=== PATIENT | male | born 1955 | race Caucasian/White ===

== ENCOUNTER 2021-01-28 09:30 | Outpatient (AMB) | payer MEDICARE, SELFPAY ==
--- NOTE | 2021-01-28 10:00 | PR.OPPALCARP ---
Vital Signs 01/28/21 10:10 Height 1.83 m Height Method Stated Weight 109.769 kg Weight Measurement Method Stated by Patient BMI 32.8 Oxygen Delivery Method Room Air Comment Pain 4-5/10 low back/chest;sharp/pressure; headache Dr. Portillo aware OP Palliative Care [facility] Palliative Care Assessment Appointment Inital Appointment: Follow up Appointment by phone IDT Team Members: Nursing, Wood Preparation Supervisor (Dodie Judge), Phramacist (Jenny Calvin), Dietitian (Tahmina Hernandez), Family (Yoselyn) and Other (Dr. Portillo) Language Spoken: Romanian Personal/Provider information List Name, Facility and location of PCP: LELA Oleary, [facility] in [place]; Date of last visit to PCP: 02/03/21 [facility] Last Labs: 01/08/21 Diagnosis: Metastatic lung cancer Current Treatment [facility] Current Treatment: IV Chemo (on hold for now) and Radiation (half way done with radiation on Tuesday) Current treatment schedule: Goes daily for radiation Pain Is patient in pain?: Yes Neurological Neurological WNL: No Stength: Moderate weakness Sensation: Pain HEENT HEENT WNL: Yes Respiratory Respiratory WNL: No Shortness of Breath: Quite a bit (recovers in 5 minutes) Dyspnea Type: Dyspnea of exertion and Dyspnea at rest Cough: None Sputum: None Gastrointestional Gastrointestinal: No Date of Last Bowel Movement: 01/28/21 Bowel Pattern: Toilet Appetite: 25% of Normal (only able to eat a few bites; able to drink more liquids) Nausea: Moderate (severe; dry heaving with smell or look at food) Vomiting: None Genitourinary Genitourinary WNL: Yes Integumentary Integumentary WNL: No (has healing/scarred area size of silver dollar on back that is discolored; ) Skin Problems: None (Dr. Portillo had looked at patient's back at the healed/scarred spot) Musculoskelatal Musculosketal WNL: No Symptoms: Back Pain and Muscle Weakness Psych/Social Psych/Social WNL: Yes Anxiety Level: None Depression Level: None Sleep: Very much Energy: Not at all Judgement: Good Prognosis Prognosis: Fair Goal of Care: Life Prolonging Advance Care Plan: Advanced Directive (Discussed; patient has documents) and POLST (Discussed; patient has documents) Medical Decision Maker: Yanira, patient's Palliative Performance Scale Palliative Performance Scale: Symptomatic/Up and about/bedridden <50% of time Issues: nausea; dry heave; pain; weight loss; poor appetite; poor energy Plan: Medications to help with nausea; high calorie/high protein diet; pain manag List Name, Facility and location of PCP: LELA Oleary [facility] in [place]; Prognosis: Fair List Name, Facility and location of PCP: LELA Oleary, [facility]; Prognosis: Fair List Name, Facility and location of PCP: LELA Oleary, [facility]; Diagnosis Diagnosis: Metastatic lung cancer *CWC Office Visit complete CWC Offive Visit Complete CWC Visit Complete?: Yes
[2021-01-28 10:10] VITALS: BMI 32.8
--- NOTE | 2021-01-28 10:13 | CWCCLIPHA ---
Review of Systems Const Constitutional: Reports daytime sleepiness, Reports fatigue, Reports headache(s), Reports lethargy, Reports poor appetite, Reports weakness and Reports weight loss ENT Ears. Nose, Mouth, and Throat: Reports ear discharge (right), Reports headache(s), Reports hearing loss (right) and Reports other (ruptured tympanic membrane AD) Card Cardiovascular: Reports chest pain, Reports chest pain at rest and Reports dyspnea Resp Respiratory: Reports dyspnea GI Gastrointestinal: Reports abdominal pain (like a punch in the stomach that could last for hours - like an ulcer), Reports nausea and Reports vomiting (dry heaving) Musc Musculoskeletal: Reports back pain (low back pain) Skin/Breast Skin/Breast: Reports dry skin, Reports non-healing lesions (slow healing bug bite wound to back) and Reports other ( crepey skin) Neuro Neurologic: Reports abnormal movements (shaking - attributed to poor oral intake and weakness), Reports headache(s) and Reports weakness Endo Endocrine: Reports fatigue Exam Const General: cooperative Orientation: alert Neuro General: patient alert Cognition: normal cognition Speech: speech normal Psych Mental Status: mental status grossly normal Mood: congruent mood and euthymic mood Affect: normal affect Speech and Movement: speech clear Attitude: cooperative Thought Process: normal Thought Content: normal Judgment: judgment good Supplemental Info Assessment & Plan: 1. Persistent nausea and dry heaving with poor oral intake. 45 lb overall unintentional weight loss with significant weakness, now requiring assistance while dressing. Trial/failure with Zofran, Compazine, Reglan serially but not in combination at home. Symptoms improved for a few days after treatment with IV Zofran, IV Reglan, IM steroid and IV fluids. Na, K slightly low. Identifiable triggers include toaster oven smells, food commercials and psychological fixation. Patient reported some GI upset with Reglan. Vertigo may be contributing as patient has a history of tympanic tubes with recent rupture of right tympanic membrane. Patient not open to suppositories. Recommended combination therapy of routine Zofran Q8H, modest routine Reglan Q12H, electrolyte containing beverages and avoidance of triggers. Plan for telephone follow-up in 2 days. Patient amenable to plan. Consider escalating Reglan or addition of Compazine, TransDerm Scop, Dexamethasone or PPI at that time. 2. Medication Reconciliation. Several medications held or discontinued. Updated home med list. 3. Chronic pain. Increase in low back pain consistent with adrenal and liver masses, hydromorphone use escalated since last encounter to QAM-BID. Persistent GARZA post brain XRT and dexamethasone, treating with ASA and Excedrine Migraine. Intermittent, transient mid-chest pain consistent with pleural pain with deep inspiration and/or lung mass, undergoing XRT to lung. Continue current management while optimizing nausea management. Monitor. 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 Sleep apnea Low back pain Relevant Labs Relevant Labs: 01/08/21 Na 134 (136-145) K 3.4 (3.4-5.1) IDT Present IDT Present: MD Leslie Hedrick, NINON, CHPN Dodie Judge, ACADEMIC MANAGER, NITRIC ACID CONCENTRATOR OPERATOR Tahmina Hernandez, RD Family/Electrical Installation Inspector(s) present Family/Caregiver (s) present: Yanira, Patients stated concerns Patient's stated concerns: Constant nausea and dry heaving Increased low back pain, transient chest pain SOB, unable to inspire deeply 45 LB weight loss Fatigue Low TSH Cancer is progressing, not currently on chemo Ruptured right ear drum, 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 He is joined by his , Yoselyn. He is currently undergoing XRT to the lung and will be 50% done on Tuesday. He c/o being extremely tired and weak, and is in bed sleeping nearly 20 hours a day. He's in bed in part because his pain resolves when laying down and being still. He has had increased low back pain as well as intermittent and transient mid-chest pain. He reports increasing SOB with inability to inspire deeply. He also c/o of persistent GARZA. He's taking Hydromorphone QAM-BID, ASA up to TID and Excedrin Migraine BID. He reports a 45 lb overall weight loss, persistent nausea with painful dry heaving (diaphragm, ribs) and inability to eat or drink significantly for 4-6 weeks. He has only been able to drink 1-2 small beverages a day and have a few bites of food per day. He states his right eardrum ruptured and he is unable to hear out of his right ear, and endorses a history of drainage tubes under Dr. Ethan Azul, ENT. Medication and Supplements Medication and Supplements: Albuterol 2.5mg/3mL via nebulizer QAM and Q4H PRN Albuterol HFA 90 mcg PRN SOB APAP 500mg PRN GARZA or pain ASA OTC TID PRN GARZA Excedrin Migraine 1 T PO BID PRN GARZA Flovent 110mcg HFA 2 INL BID Folic Acid 1mg PO QAM Hydromorphone 4mg PO Q6H PRN (usually QAM-BID) Levothyroxine 175mcg PO every other AM Levothyroxine 200mcg PO every other AM Lisinopril 10mg PO QD MVI + Minerals 1 T QD Ondansetron Q8H PRN nausea (not using) Pepto Bismol PRN GI upset Tums PRN indigestion Vit B12 1000mcg IM Q 3 weeks Vit D2 50,000 IU PO Q Tuesday AM Comments Additional Comments: PCP LELA Oleary Preferred Pharmacy [facility] Coverage [facility] Medicare Advantage Assure (HMO) *CWC Office Visit complete CWC Offive Visit Complete CWC Visit Complete?: No
--- NOTE | 2021-01-28 16:14 | CWCCLINC_ITS ---
Vital Signs 01/28/21 10:10 Height 1.83 m Height Method Stated Weight 109.769 kg Weight Measurement Method Stated by Patient BMI 32.8 Oxygen Delivery Method Room Air Comment Pain 4-5/10 low back/chest;sharp/pressure; headache Dr. Portillo aware OP Palliative Care Referral source Referral Source: Follow-Up Visit Changes in weight Weight Loss: Yes Nutritional Assessment Nutritional Assessment additional comments: Appointment Date/Time: 01/28/21, 9:30 am. Appointment type: Follow up, over the phone with Yoselyn present. Diagnosis and PMH include: Stage IV Lung Cancer with metastasis, HTN, Hypothyroidism, Hypocholesteremia. Treatment: Chemo on hold, pt reports had radiation more than a week and needs radiation for 2 more weeks. Pt reports had Chemo 3 + year and completed 28 radiation from 09/29/20 and 11/04/20. Reported current weight: 242 lbs. (01/26/21); reflect weight loss of 14 lbs. over the past month (5.5%). Current BMI 32.8 kg/mm reflect obesity status. IBWR: 178 lbs. +/- 10% (162-196 lbs.). Current nutrition concern: Unable to eat much r/t severe Nausea, Dry heaving and Vomiting. Significant weight loss >5% in one month. Change of smell and taste affect appetite. Lizandro reports can?t eat much, the smell or sound of food preparation or visual of food in TV seems to trigger his dry heaving. When he try to eat, he can only tolerate few bites at a time. He seems to be able to keep liquid down better per Yoselyn. He dislike all Oral Nutrition Supplement samples provided after previous appointment, will also try clear liquid samples. He can tolerates few bites of egg salad or egg sandwich, small size of low fat milk in [place] happy meal. Lizandro able to drink water and some sweetened tea, few bites of ice cream and 3 cashews. He feels he has no desire to eat. Lizandro is encouraged to try different ways to improve his oral food and fluid intake. Pt reports the mixture of Zofran and Reglan appeared to work well while he was admitted to ER and it will be used to manage his severe dry heaving. He is also encouraged to try smoothie, milk shake and nutrients dense food or snack in small frequent intake. Water, tea, Gatorade, or Pedialytes also encouraged to ensure fluid and electrolytes balance. Oral Nutrition Supplement sample provided: Boost Sooth (clear liquid/strawberry- kiwi flavor) Nutrition Problems: NC 3.2 Unintended weight loss, NI 2.1 Inadequate oral intake with poor appetite and low intake, NI3.1 Inadequate Fluid intake, not drinking much water, NC 1.4 Altered GI function with nausea and vomiting, NB 2.1 Physical inactivity- stay in bed a lot. RDN to monitor medical progress, appetite, GI function, ONS samples tolerance and nutrition support needs. Follow-up Visit Follow up visit: Yes *CWC Office Visit complete CWC Offive Visit Complete CWC Visit Complete?: No
--- NOTE | 2021-01-30 13:55 | CWCCLINC_ITS ---
Vital Signs 01/28/21 10:10 Height 1.83 m Height Method Stated Weight 109.769 kg Weight Measurement Method Stated by Patient BMI 32.8 Oxygen Delivery Method Room Air Comment Pain 4-5/10 low back/chest;sharp/pressure; headache Dr. Portillo aware OP Palliative Care [facility] Palliative Care Assessment Personal/Provider information List Name, Facility and location of PCP: [facility] [place], [place] Prognosis Prognosis: Fair List Name, Facility and location of PCP: [facility] [place], [place] Prognosis: Fair Advanced Care plan discussed: Yes Who patient wants involved in care decisions: Patient named his , Yoselyn Garvey, as primary surrogate medical decision maker. Primary Medical Surrogate Decision Maker?: Yes Existing Advance Directive: No POLST Form: No Comments Additional Comments: Discussed with patient and his ADVDIR and POLST. Patient reported he has not reviewed the documents, but they have both. Provided education on both documents to the patient and . They will review them and will reach out when ready to complete. Will email patient?s an educational handout for the POLST form for further education. List Name, Facility and location of PCP: [facility] [place], [place] Patient Diagnosis: Metastatic Lung Cancer Prognosis: Fair Current goal of care: Life-prolonging Mental Status: Alert and Oriented Coping Status: Coping w/some difficulty Emotional Status: Depressed Learning needs: Motivational Home situation: Lives with . Support System: Good Financial Status: Adequate Care Conf Coordinator: Nettie Ceballos date/time/location: 01/28/21 9:30am [facility] Conference Room Patient Diagnosis: Metastatic Lung Cancer Purpose of meeting: Palliative Care follow-up Participants in meeting and relationship: Lizandro Garvey, patient Yoselyn Garvey, Dodie Judge, WAREHOUSE SUPERVISOR Jenny Calvin, PharmD Leslie Trivedi, RN Tahmina Hernandez, RD Dr. Andres Portillo How are patients wishes known: Patient cognitive/verbal Who is the decision maker for the patient: Patient Issues addressed: Depression/Anxiety Low Energy Discussion/Outcomes/Follow-up: This is a 65 year old male who presented to his Palliative Care follow-up via phone conference along with his , Yoselyn. Patient was alert and oriented. Mood and affect was within normal limits and thought process was congruent with thought content. No disturbances to speech patterns. Provided patient education on Mindfulness to psychologically help combat nausea and dry heaving. Re-introduced Imagery exercise. Patient verbalized he has tried it but has not work. Recommended patient try to re-introduce the strategy consistently. Educated on the benefits of the imagery exercise. Patient reported she has the handout and was reviewing it as we spoke ?Coping Skills: Anxiety?. Also, recommended incorporating deep breathing exercises and educated on the benefits. Patient?s also reported she had the handout and was reviewing it as we spoke ?Coping Skills: Anxiety?. Engaged patient in practicing the deep breathing exercise. Patient reported he did experience some pain. Recommended patient to modify the inhale, hold, and exhale seconds as he is able to do so. Recommended patient try the two strategies consistently and will follow-up with patient in two weeks. Patient?s reported she will have patient work on the strategies. Also recommended patient?s engage in the strategies to help relieve her own stressors. Patient?s reported she has felt anxious and will try out the exercises. Will continue to further support and assess patient?s and patient. Had a follow-up discussion on the intervention discussed last follow-up: Behavioral Activation Intervention. Patient continues to have low energy and is sleeping a lot. Patient?s tries to get patient up during the day. Goal continues to be for patient to go outside in the mornings. They had a friend visit day prior and patient engaged in the visit. Recommended continuous use of the intervention and set short and realistic goals and explained how to appropr iately set the goals. Will continue to monitor. See Leslie Trivedi RN note for further nursing evaluation and medical concerns. See Maria Dolores BurnsD notes for recommendations on medications and medical concerns. See Tahmina Hernandez RD notes for further recommendations and counseling on nutrition. Tenative date for F/U Patient family meetin02/26/21 Advanced Directive: No POLST Form: No Primary Medical Surrogate Decision Maker?: Yes List Name, Facility and location of PCP: Dr. Ibarra, [facility], [place], [place] *CWC Office Visit complete CWC Offive Visit Complete CWC Visit Complete?: No
== END 2021-01-28 11:15 | disposition home or self-care (01) ==
LOC: HODCWC 09:59
PROVIDERS: PCP Physician Assistant; Referring Provider Physician Assistant; Visit Provider Radiology Therapeutic Radiology
DX: Z51.5 Encounter for palliative care (principal)